=== PATIENT | female | born 1950 | race Caucasian/White ===

== ENCOUNTER → 2016-08-20 | Outpatient (CLI) | payer MEDICARE, OTHER ==
[~2016-08-20] MED LIST: ALBUTEROL0.09 MG/A4 IH; ASPIR-LOW81 MG PO; BUDEPRION SR150 M1 PO; CARDIZEM 30MG T30 MG PO; CARTIA; CARTIA XT180 MG PO; CELEBREX 200MG200 MG PO; CELEXA 20MG20 MG/TAB; CIPRO 500MG TA500 MG PO; EFFEXOR 75M75 MG/TAB PO; ESCITALOPRAM; KLONOPIN 0.5MG0.5 MG PO; LAMICTAL 100MG100 MG PO; LEVAQUIN 750MG750 M1 PO; NORCO 325 MG-51 TAB PO; PREDNISONE20 MG PO; PRILOSEC; PRILOSEC 20MG20 MG PO; TESSALON PERLE200 MG PO; TIAZAC240 MG PO; TOPROL; TRIAMCINOLONE A15 GM TP; XANAX .25M0.25 MG/TA PO; ZITHROMAX Z PA250 MG PO; ZOFRAN 4MG T4 MG/TAB PO
== END ==
LOC: BHSO 11:40
DX: F33.1 Major depressive disorder, recurrent, moderate (principal)

== ENCOUNTER → 2016-10-24 | Outpatient (CLI) | payer MEDICARE, OTHER | LOC: BHSO 10:00 | DX: F33.1 Major depressive disorder, recurrent, moderate (principal) ==

== ENCOUNTER 2016-11-17 02:17 | Emergency (ER) | payer MEDICARE, OTHER ==
[~2016-11-17] VITALS: Ht 165.1 cm; Wt 110.0 kg
[~2016-11-17 02:17] MED LIST changes: -TRIAMCINOLONE A15 GM TP
[2016-11-17 02:18] VITALS: TEMP 97.9
[2016-11-17] MEDS ORDERED: TRIAMCINOLONE A15 GM TP (02:36)
[2016-11-17 03:23] VITALS: BP 174/97; PULSE 91
== END 2016-11-17 03:23 | disposition home or self-care (01) ==
LOC: COL.ER 02:17
DX: L50.9 Urticaria, unspecified (principal); K75.9 Inflammatory liver disease, unspecified; I10 Essential (primary) hypertension; F32.9 Major depressive disorder, single episode, unspecified; Z90.710 Acquired absence of both cervix and uterus
CPT/HCPCS: J1040

== ENCOUNTER → 2016-12-05 | Outpatient (CLI) | payer MEDICARE, OTHER ==
[~2016-12-05] MED LIST changes: +TRIAMCINOLONE A15 GM TP
== END ==
LOC: BHSO 08:58
DX: F41.1 Generalized anxiety disorder (principal)

== ENCOUNTER → 2017-03-04 | Outpatient (CLI) | payer MEDICARE, OTHER | LOC: MC.RAD 10:54 | DX: Z12.31 Encounter for screening mammogram for malignant neoplasm of breast (principal) ==

== ENCOUNTER → 2017-03-11 | Outpatient (CLI) | payer MEDICARE, OTHER | LOC: BHSO 08:46 | DX: F33.1 Major depressive disorder, recurrent, moderate (principal) ==

== ENCOUNTER → 2017-06-12 | Outpatient (CLI) | payer MEDICARE, OTHER | LOC: BHSO 09:14 | DX: F33.1 Major depressive disorder, recurrent, moderate (principal) | CPT/HCPCS: G0463 ==

== ENCOUNTER → 2017-09-10 | Outpatient (CLI) | payer MEDICARE, OTHER | LOC: BHSO 09:00 | DX: F33.41 Major depressive disorder, recurrent, in partial remission (principal) | CPT/HCPCS: G0463 ==

== ENCOUNTER → 2017-11-12 | Outpatient (CLI) | payer MEDICARE, OTHER | LOC: BHSO 08:54 | DX: F41.1 Generalized anxiety disorder (principal) | CPT/HCPCS: G0463 ==

== ENCOUNTER → 2017-12-15 | Outpatient (CLI) | payer MEDICARE, OTHER | LOC: COL.RAD 09:43 | DX: M17.11 Unilateral primary osteoarthritis, right knee (principal); M22.41 Chondromalacia patellae, right knee; M25.461 Effusion, right knee; S83.241D Other tear of medial meniscus, current injury, right knee, subsequent encounter ==

== ENCOUNTER 2018-02-07 12:04 | Emergency (ER) | payer MEDICARE, OTHER ==
[2018-02-07 12:10] VITALS: TEMP 97.9
[2018-02-07 12:44] LABS: BASO # 0.1 (0.0-0.2); BASO % 0.5 % (0.0-2.0); EOS # 1.7 (0.0-0.7); EOS % 13.4 % (0-4.0); GRAN # 6.7 (1.4-6.5); GRAN % 54.2 % (42.2-75.2); HEMATOCRIT 48.6 % (37.0-47.0); HEMOGLOBIN 16.5 g/dl (12.5-16.0); LYMPH # 3.1 (1.2-3.4); MEAN CELL VOLUME 86 fl (80.0-100.0); MEAN CORPUSCULAR HEMOGLOBIN 29 pg (27.0-31.0); MEAN CORPUSCULAR HGB CONC 34 g/dl (33.0-37.0); MEAN PLATELET VOLUME 9.9 fl (7.4-10.4); MONO # 0.8 (0.1-0.6); MONO % 6.3 % (1.7-9.3); PLATELET COUNT 323 K/mm3 (130-400); RED BLOOD COUNT 5.64 M/mm3 (4.10-5.30); REDCELL DISTRIBUTION WIDTH-CV 13.1 % (11.5-14.5)
[2018-02-07 12:56] LABS: COLLECTION METHOD CLEAN CATCH
[2018-02-07 12:57] LABS: ALBUMIN 4.2 gm/dL (3.5-5.0); BILIRUBIN,TOTAL 0.5 mg/dL (0.0-1.0); C-REACTIVE PROTEIN 1.1 mg/dL (0.0-0.9); CALCIUM 9.9 mg/dL (8.4-10.2); CREATININE, serum 1.15 mg/dL (0.52-1.25); POTASSIUM 3.9 mmol/L (3.4-5.0); TOTAL PROTEIN 7.9 gm/dL (6.4-8.2)
[2018-02-07] MEDS ORDERED: PRILOSEC 20MG20 MG PO (12:58)
[2018-02-07] MEDS ORDERED: WELLBUTRIN XL150 MG PO (12:59)
[2018-02-07] MEDS ORDERED: TOPROL XL 25MG25 MG PO (12:59)
[2018-02-07] MEDS ORDERED: CARTIA XT300 MG PO (12:59)
[2018-02-07] MEDS ORDERED: EFFEXOR-XR150 MG PO (12:59)
[2018-02-07] MEDS ORDERED: LAMICTAL150 MG PO (13:00)
[2018-02-07 13:09] LABS: HYALINE CAST >12 /lpf; MUCOUS Present /lpf; PH 5 (5-8); URINE APPEARANCE Hazy; URINE BACTERIA None Seen /hpf; URINE BILIRUBIN Negative (NEGATIVE); URINE BLOOD Negative (NEGATIVE); URINE COLOR Amber; URINE GLUCOSE Negative (NEGATIVE); URINE KETONE Negative (NEGATIVE); URINE LEUKOCYTE ESTERASE Negative (NEGATIVE); URINE NITRATE Negative (NEGATIVE); URINE PROTEIN(semi-quant) 2+ (NEGATIVE); URINE RBC 0-2 /hpf
[2018-02-07 14:34] VITALS: BP 144/83; PULSE 85
[2018-02-08] MEDS ORDERED: PHENERGAN 25 TA25 MG PO (04:22)
[2018-02-08] MEDS ORDERED: CIPRO 500MG TA500 MG PO (04:22)
[2018-02-08] MEDS ORDERED: FLAGYL500 MG PO (04:22)
== END 2018-02-07 15:40 | disposition home or self-care (01) ==
LOC: COL.ER 12:04
PROVIDERS: Family Medicine
DX: R10.12 Left upper quadrant pain (principal); R19.7 Diarrhea, unspecified; I10 Essential (primary) hypertension
CPT/HCPCS: J1170; J2405; J7030; J7120; Q9967

== ENCOUNTER 2018-02-08 01:56 | Emergency (ER) | payer MEDICARE, OTHER ==
[~2018-02-08] VITALS: Ht 165.2 cm; Wt 104.5 kg
[~2018-02-08 01:56] MED LIST changes: +CARTIA XT300 MG PO; +EFFEXOR-XR150 MG PO; +LAMICTAL150 MG PO; +TOPROL XL 25MG25 MG PO; +WELLBUTRIN XL150 MG PO
[2018-02-08 02:09] VITALS: TEMP 98.1
[2018-02-08 02:57] LABS: BASO # 0.1 (0.0-0.2); BASO % 0.3 % (0.0-2.0); EOS # 2.8 (0.0-0.7); EOS % 19.3 % (0-4.0); GRAN # 7.2 (1.4-6.5); GRAN % 49.2 % (42.2-75.2); HEMATOCRIT 45.6 % (37.0-47.0); HEMOGLOBIN 15.4 g/dl (12.5-16.0); LYMPH # 3.3 (1.2-3.4); MEAN CELL VOLUME 88 fl (80.0-100.0); MEAN CORPUSCULAR HEMOGLOBIN 30 pg (27.0-31.0); MEAN CORPUSCULAR HGB CONC 34 g/dl (33.0-37.0); MEAN PLATELET VOLUME 9.9 fl (7.4-10.4); MONO % 7.1 % (1.7-9.3); PLATELET COUNT 275 K/mm3 (130-400); RED BLOOD COUNT 5.21 M/mm3 (4.10-5.30); REDCELL DISTRIBUTION WIDTH-CV 13.2 % (11.5-14.5)
[2018-02-08 03:09] LABS: ALANINE AMINOTRANSFERASE 28 U/L (9-52); ALBUMIN 3.7 gm/dL (3.5-5.0); ALKALINE PHOSPHATASE 119 U/L (50-136); ANION GAP 13 mmol/L (7-16); AST,SGOT 20 U/L (15-37); BILIRUBIN,TOTAL 0.4 mg/dL (0.0-1.0); BLOOD UREA NITROGEN 10 mg/dL (7-17); C-REACTIVE PROTEIN 1.1 mg/dL (0.0-0.9); CALCIUM 9.6 mg/dL (8.4-10.2); CARBON DIOXIDE 19 mmol/L (22-30); CHLORIDE 108 mmol/L (98-107); GLUCOSE 108 mg/dL (74-106); POTASSIUM 3.5 mmol/L (3.4-5.0); SODIUM 140 mmol/L (137-145)
[2018-02-08 03:12] LABS: LIPASE < 10 U/L (23-300)
[2018-02-08 03:25] LABS: TROPONIN-I < 0.012 ng/mL (0.000-0.034)
[2018-02-08] MEDS ORDERED: CIPRO 500MG TA500 MG PO (04:22)
[2018-02-08] MEDS ORDERED: PHENERGAN 25 TA25 MG PO (04:22)
[2018-02-08] MEDS ORDERED: FLAGYL500 MG PO (04:22)
[2018-02-08 04:55] VITALS: BP 131/73; PULSE 91
== END 2018-02-08 04:55 | disposition home or self-care (01) ==
LOC: COL.ER 01:56
PROVIDERS: Emergency Medicine
DX: R11.10 Vomiting, unspecified (principal); R19.7 Diarrhea, unspecified; R10.9 Unspecified abdominal pain; F32.9 Major depressive disorder, single episode, unspecified; I10 Essential (primary) hypertension; Z90.710 Acquired absence of both cervix and uterus
CPT/HCPCS: J2405; J7030

== ENCOUNTER → 2018-02-09 | Outpatient (CLI) | payer MEDICARE, OTHER ==
[~2018-02-09] MED LIST changes: +FLAGYL500 MG PO; +PHENERGAN 25 TA25 MG PO
== END ==
LOC: COL.RAD 10:23
DX: N20.0 Calculus of kidney (principal); R19.7 Diarrhea, unspecified

== ENCOUNTER → 2018-02-13 | Outpatient (CLI) | payer MEDICARE, OTHER | LOC: COL.RAD 10:07 | DX: R10.13 Epigastric pain (principal) | CPT/HCPCS: A9537; J2270 ==

== ENCOUNTER → 2018-02-19 | Outpatient (CLI) | payer MEDICARE, OTHER ==
[~2018-02-19] MED LIST changes: +COLACE 100100 MG/CAP PO; +MOTRIN 600600 MG/TAB PO
[2018-02-19 12:22] LABS: INR 1.3 (0.8-3.0); PROTHROMBIN TIME 15.2 SECONDS (9.7-12.8)
== END ==
LOC: COL.LAB 11:22
PROVIDERS: Surgery
DX: Z01.812 Encounter for preprocedural laboratory examination (principal)

== ENCOUNTER 2018-02-20 12:08 | Observation (INO) | payer MEDICARE, OTHER ==
[2018-02-20] VITALS (9 sets, daily range): BP systolic 116–151; BP diastolic 46–94; PULSE 86–91; TEMP 98–98.8
[~2018-02-20] VITALS: Ht 165.1 cm; Wt 103.1 kg
[~2018-02-20 12:08] MED LIST changes: -COLACE 100100 MG/CAP PO; -MOTRIN 600600 MG/TAB PO
[2018-02-20] MEDS ORDERED: LAMICTAL 100MG100 MG PO (12:59)
[2018-02-20 13:07] LABS: INR 1.4 (0.8-3.0); PROTHROMBIN TIME 15.9 SECONDS (9.7-12.8)
[2018-02-20] MEDS ORDERED: NORCO 325 MG-51 TAB PO (14:21)
[2018-02-20] MEDS ORDERED: MOTRIN 600600 MG/TAB PO (14:21)
[2018-02-20] MEDS ORDERED: COLACE 100100 MG/CAP PO (14:21)
[2018-02-21 00:17] VITALS: BP 131/58; PULSE 97; TEMP 98.6
[2018-02-21 03:02] VITALS: BP 145/75; PULSE 94; TEMP 97.8
[2018-02-21 07:42] VITALS: BP 147/82; PULSE 94; TEMP 98.3
[2018-02-21 11:39] VITALS: BP 152/69; PULSE 97; TEMP 97.9
== END 2018-02-21 15:30 | disposition home or self-care (01) ==
LOC: SDCO 12:08 → INPTSU 16:22 → SURG 16:22
PROVIDERS: Surgery
DX: K81.1 Chronic cholecystitis (principal); I12.9 Hypertensive chronic kidney disease with stage 1 through stage 4 chronic kidney disease, or unspecified chronic kidney disease; N18.2 Chronic kidney disease, stage 2 (mild); N60.12 Diffuse cystic mastopathy of left breast; N60.11 Diffuse cystic mastopathy of right breast; G47.33 Obstructive sleep apnea (adult) (pediatric); J45.909 Unspecified asthma, uncomplicated; K21.9 Gastro-esophageal reflux disease without esophagitis; Z80.0 Family history of malignant neoplasm of digestive organs; Z88.5 Allergy status to narcotic agent; Z88.1 Allergy status to other antibiotic agents; Z79.899 Other long term (current) drug therapy; F32.9 Major depressive disorder, single episode, unspecified; F41.9 Anxiety disorder, unspecified
CPT/HCPCS: G0378; G0379; J0690; J1100; J1170; J2405; J2550; J2704; J2710; J2765; J3010; J7120

== ENCOUNTER → 2018-03-10 | Outpatient (CLI) | payer MEDICARE, OTHER ==
[~2018-03-10] MED LIST changes: +ASPI325T6 PO; +COLACE 100100 MG/CAP PO; +MOTRIN 600600 MG/TAB PO; +NORCO 325 MG-7.1 TAB PO; +ROXICODONE 55 MG/TAB PO
[2018-03-10 13:35] LABS: HEMATOCRIT 43.5 % (37.0-47.0); HEMOGLOBIN 14.6 g/dl (12.5-16.0); MEAN CELL VOLUME 89 fl (80.0-100.0); MEAN CORPUSCULAR HEMOGLOBIN 30 pg (27.0-31.0); MEAN CORPUSCULAR HGB CONC 34 g/dl (33.0-37.0); MEAN PLATELET VOLUME 10.1 fl (7.4-10.4); PLATELET COUNT 342 K/mm3 (130-400); REDCELL DISTRIBUTION WIDTH-CV 13.2 % (11.5-14.5)
[2018-03-10 13:42] LABS: ALBUMIN 3.9 gm/dL (3.5-5.0); BILIRUBIN,TOTAL 0.4 mg/dL (0.0-1.0); CALCIUM 9.3 mg/dL (8.4-10.2); CREATININE, serum 1.01 mg/dL (0.52-1.25); POTASSIUM 3.6 mmol/L (3.4-5.0); TOTAL PROTEIN 7.5 gm/dL (6.4-8.2)
== END ==
LOC: COL.LAB 12:42
PROVIDERS: Surgery
DX: R53.1 Weakness (principal); R53.83 Other fatigue; R42 Dizziness and giddiness

== ENCOUNTER 2018-04-24 09:32 | Emergency (ER) | payer OTHER, MEDICARE ==
[~2018-04-24] VITALS: Ht 165.1 cm; Wt 95.5 kg
[2018-04-24 09:37] VITALS: BP 128/63; TEMP 97.8
[2018-04-24] MEDS ORDERED: ULTRAM 50MG TAB50 MG PO (10:37)
[2018-04-24 10:53] VITALS: PULSE 78
== END 2018-04-24 10:54 | disposition home or self-care (01) ==
LOC: COL.ER 09:32
DX: S80.01XA Contusion of right knee, initial encounter (principal); I10 Essential (primary) hypertension; Z47.1 Aftercare following joint replacement surgery; Z88.5 Allergy status to narcotic agent; Z90.49 Acquired absence of other specified parts of digestive tract; Z79.82 Long term (current) use of aspirin; V89.2XXA Person injured in unspecified motor-vehicle accident, traffic, initial encounter
CPT/HCPCS: J1885

== ENCOUNTER → 2018-07-02 | Outpatient (CLI) | payer MEDICARE, OTHER ==
[~2018-07-02] MED LIST changes: +ULTRAM 50MG TAB50 MG PO
== END ==
LOC: BHSO 14:37
DX: F33.1 Major depressive disorder, recurrent, moderate (principal)
CPT/HCPCS: G0463

== ENCOUNTER → 2018-07-21 | Outpatient (CLI) | payer MEDICARE, OTHER | LOC: BHSO 08:55 | DX: F33.41 Major depressive disorder, recurrent, in partial remission (principal) | CPT/HCPCS: G0463 ==

== ENCOUNTER → 2018-08-20 | Outpatient (CLI) | payer MEDICARE, OTHER | LOC: BHSO 09:02 | DX: F33.41 Major depressive disorder, recurrent, in partial remission (principal) | CPT/HCPCS: G0463 ==

== ENCOUNTER → 2018-10-05 | Outpatient (CLI) | payer MEDICARE, OTHER | LOC: BHSO 08:56 | DX: F33.42 Major depressive disorder, recurrent, in full remission (principal) | CPT/HCPCS: G0463 ==

== ENCOUNTER → 2018-11-24 | Outpatient (CLI) | payer MEDICARE, OTHER | LOC: BHSO 10:12 | DX: F33.42 Major depressive disorder, recurrent, in full remission (principal) | CPT/HCPCS: G0463 ==

== ENCOUNTER → 2019-03-29 | Outpatient (CLI) | payer MEDICARE, OTHER | LOC: BHSO 08:57 | DX: F33.42 Major depressive disorder, recurrent, in full remission (principal) | CPT/HCPCS: G0463 ==

== ENCOUNTER → 2019-05-25 | Outpatient (CLI) | payer MEDICARE, OTHER | LOC: BHSO 09:22 | DX: F33.41 Major depressive disorder, recurrent, in partial remission (principal) | CPT/HCPCS: G0463 ==

== ENCOUNTER 2019-06-14 08:29 | Day surgery (SDC) | payer MEDICARE, OTHER ==
[2019-06-14] VITALS (7 sets, daily range): BP systolic 112–155; BP diastolic 60–89; PULSE 65–78; TEMP 97.3–97.4
[~2019-06-14] VITALS: Ht 165.1 cm; Wt 100.4 kg
--- NOTE | 2019-06-14 16:34 | NUR ---
PT RETURNED FROM PACU PER CART. PT WAS AWAKE ALERT AND ORIENTATED. PT DENIES PAIN OR NAUSEA AT THIS TIME. DRESSING INTACT TO LEFT EXTREMITY. FINGERS ARE WARM TO THE TOUCH WITH GOOD CAPILLARY REFILL. PT DENIES NUMBNESS OR TINGLING. REQUESTS COKE AND BLUEBERRY MUFFIN. WILL CONT TO MONITOR. CALL LIGHT IN REACH.
--- NOTE | 2019-06-14 17:08 | NUR ---
PT ALERT AND ORIENTATED, DENIES PAIN OR NAUSEA, NO VOMITING. PT LEFT EXTREMITY DRESSING IS INTACT AND DRY. FINGERS WARM, DENIES NUMBNESS AND TINGLING. GOOD CAPILLARY REFILL. VSS, AFEBRILE. DISCHARGE INSTRUCTIONS GIVEN, PT VOICES UNDERSTANDING. PATIENT DISCHARGED TO FAMILY VEHICLE, DAUGHTER DRIVING.
== END 2019-06-14 17:22 | disposition home or self-care (01) ==
LOC: SDCO 08:29
DX: G56.02 Carpal tunnel syndrome, left upper limb (principal); I10 Essential (primary) hypertension; G47.33 Obstructive sleep apnea (adult) (pediatric); I12.9 Hypertensive chronic kidney disease with stage 1 through stage 4 chronic kidney disease, or unspecified chronic kidney disease; N18.2 Chronic kidney disease, stage 2 (mild); Z79.82 Long term (current) use of aspirin; Z79.899 Other long term (current) drug therapy; Z88.2 Allergy status to sulfonamides; F41.9 Anxiety disorder, unspecified; K21.9 Gastro-esophageal reflux disease without esophagitis
CPT/HCPCS: J0690; J1885; J2250; J2405; J2704; J3010; J7120

== ENCOUNTER 2020-06-02 09:47 | Day surgery (SDC) | payer MEDICARE ==
[~2020-06-02] VITALS: Ht 165.1 cm; Wt 105.5 kg
[2020-06-02 11:38] VITALS: BP 144/77; PULSE 72; TEMP 97.3
[2020-06-02 11:45] VITALS: BP 108/67; PULSE 62; TEMP 98.6
--- NOTE | 2020-06-02 11:45 | NUR ---
Pt to GI bay 9 via cart from ENDO. Pt awake and alert. Pt having wheezing noted, but denies shortness of breath. Pt requires O2 at 3 liters via oxymask. RT notified of breathing treatment orders. Will continue to monitor. Call light within reach.
[2020-06-02] MEDS ORDERED: LAMICTAL150 MG PO (11:54)
[2020-06-02] MEDS ORDERED: ALAVERT10 M1 PO (11:56)
[2020-06-02] MEDS ORDERED: TESSALON P100 MG/CAP PO (11:56)
[2020-06-02] MEDS ORDERED: NORCO 325 MG-51 TAB PO (11:57)
[2020-06-02 12:00] VITALS: BP 130/72; PULSE 61
--- NOTE | 2020-06-02 12:00 | NUR ---
Pt continues to rest. Breathing treatment in progress. Will continue to monitor.
[2020-06-02 12:15] VITALS: BP 119/65; PULSE 58
--- NOTE | 2020-06-02 12:15 | NUR ---
Pepsi and muffin given per pt request. O2 discontinued. Will continue to monitor.
[2020-06-02 12:30] VITALS: BP 141/75; PULSE 59
--- NOTE | 2020-06-02 12:30 | NUR ---
Pt continues to rest. Denies needs. Will continue to monitor. Call light within reach.
--- NOTE | 2020-06-02 12:45 | NUR ---
Discharge instructions reviewed. Pt voices understanding. IV site discontinued with all parts intact. Pt up to dress. Call light within reach.
--- NOTE | 2020-06-02 12:59 | NUR ---
Pt escorted to private car via wheel chair. Pt accompanied home by her daughter.
== END 2020-06-02 12:59 | disposition home or self-care (01) ==
LOC: SDCO 09:47
DX: K31.7 Polyp of stomach and duodenum (principal); K21.9 Gastro-esophageal reflux disease without esophagitis; F45.8 Other somatoform disorders; R09.89 Other specified symptoms and signs involving the circulatory and respiratory systems; Q39.8 Other congenital malformations of esophagus; K22.4 Dyskinesia of esophagus; K44.9 Diaphragmatic hernia without obstruction or gangrene; Z88.5 Allergy status to narcotic agent; Z88.1 Allergy status to other antibiotic agents; Z88.0 Allergy status to penicillin; F41.9 Anxiety disorder, unspecified; U07.1 COVID-19; K76.0 Fatty (change of) liver, not elsewhere classified; Z90.710 Acquired absence of both cervix and uterus
CPT/HCPCS: J2704; J7030

== ENCOUNTER 2020-09-24 15:32 | Emergency (ER) | payer MEDICARE ==
[~2020-09-24] VITALS: Ht 165.1 cm; Wt 104.5 kg
[~2020-09-24 15:32] MED LIST changes: +ALAVERT10 M1 PO; +TESSALON P100 MG/CAP PO
[2020-09-24 15:43] VITALS: TEMP 98.1
[2020-09-24 17:55] VITALS: BP 132/70; PULSE 78
== END 2020-09-24 17:55 | disposition home or self-care (01) ==
LOC: COL.ER 15:32
DX: S00.11XA Contusion of right eyelid and periocular area, initial encounter (principal); I10 Essential (primary) hypertension; F32.9 Major depressive disorder, single episode, unspecified; K21.9 Gastro-esophageal reflux disease without esophagitis; Z88.2 Allergy status to sulfonamides; Y00.XXXA Assault by blunt object, initial encounter

== ENCOUNTER 2020-12-26 22:17 | Emergency (ER) | payer MEDICARE ==
[~2020-12-26] VITALS: Ht 165.1 cm; Wt 100.0 kg
[2020-12-26 22:23] VITALS: TEMP 98.5
[2020-12-26 23:20] LABS: BASO % 0.6 % (0.0-2.0); EOS # 0.3 (0.0-0.7); EOS % 5.3 % (0-4.0); GRAN # 3.7 (1.4-6.5); GRAN % 59.2 % (42.2-75.2); HEMATOCRIT 38.9 % (37.0-47.0); HEMOGLOBIN 12.3 g/dl (12.5-16.0); LYMPH # 1.6 (1.2-3.4); LYMPH % 25.9 % (20.0-51.0); MEAN CELL VOLUME 87 fl (80.0-100.0); MEAN CORPUSCULAR HEMOGLOBIN 28 pg (27.0-31.0); MEAN CORPUSCULAR HGB CONC 32 g/dl (33.0-37.0); MEAN PLATELET VOLUME 9.9 fl (7.4-10.4); MONO # 0.5 (0.1-0.6); MONO % 8.5 % (1.7-9.3); PLATELET COUNT 244 K/mm3 (130-400); RED BLOOD COUNT 4.47 M/mm3 (4.10-5.30); REDCELL DISTRIBUTION WIDTH-CV 13.5 % (11.5-14.5)
[2020-12-26 23:24] LABS: ALANINE AMINOTRANSFERASE 19 U/L (4-34); ALBUMIN 3.7 gm/dL (3.5-5.0); ALKALINE PHOSPHATASE 120 U/L (50-136); ANION GAP 8 mmol/L (7-16); AST,SGOT 29 U/L (15-37); BILIRUBIN,TOTAL 0.2 mg/dL (0.0-1.0); BLOOD UREA NITROGEN 11 mg/dL (7-17); CALCIUM 8.6 mg/dL (8.4-10.2); CARBON DIOXIDE 27 mmol/L (22-30); CHLORIDE 107 mmol/L (98-107); CREATININE, serum 0.89 (0.52-1.25); GLUCOSE 142 mg/dL (74-106); POTASSIUM 3.5 mmol/L (3.4-5.0); SODIUM 142 mmol/L (137-145); TOTAL PROTEIN 7.4 gm/dL (6.4-8.2)
[2020-12-26] MEDS ORDERED: AMBIEN CR 12.12.5 MG PO (23:32)
[2020-12-26 23:52] LABS: TROPONIN-I < 0.012 ng/mL (0.000-0.035)
[2020-12-27] MEDS ORDERED: LASIX 20MG TABL20 MG PO (00:37)
[2020-12-27] MEDS ORDERED: PROAIR DIGIHAL90 MCG IH (00:38)
[2020-12-27 00:44] VITALS: BP 167/91; PULSE 87
== END 2020-12-27 00:47 | disposition home or self-care (01) ==
LOC: COL.ER 22:17
PROVIDERS: Personal Emergency Response Attendant
DX: R06.00 Dyspnea, unspecified (principal); J44.9 Chronic obstructive pulmonary disease, unspecified; I10 Essential (primary) hypertension; K21.9 Gastro-esophageal reflux disease without esophagitis; F32.9 Major depressive disorder, single episode, unspecified; Z79.899 Other long term (current) drug therapy
CPT/HCPCS: J1940; J2930

== ENCOUNTER → 2021-03-13 | Outpatient (CLI) | payer MEDICARE ==
[~2021-03-13] MED LIST changes: +AMBIEN CR 12.12.5 MG PO; +LASIX 20MG TABL20 MG PO; +PROAIR DIGIHAL90 MCG IH
== END ==
LOC: MC.RAD 11:00
DX: Z12.31 Encounter for screening mammogram for malignant neoplasm of breast (principal)

== ENCOUNTER 2022-03-30 12:32 | Emergency (ER) | payer MEDICARE, OTHER ==
[~2022-03-30] VITALS: Ht 165.1 cm; Wt 69.1 kg
[2022-03-30 12:37] VITALS: TEMP 98.8
[2022-03-30 13:08] LABS: BASO % 0.2 % (0.0-2.0); EOS # 0.2 K/mm3 (0.0-0.7); EOS % 2.3 % (0.0-4.0); GRAN # 8.2 K/mm3 (1.4-6.5); GRAN % 77.4 % (42.2-75.2); HEMATOCRIT 42.6 % (37.0-47.0); HEMOGLOBIN 13.7 g/dl (12.5-16.0); LYMPH # 1.2 K/mm3 (1.2-3.4); LYMPH % 11.2 % (20.0-51.0); MEAN CELL VOLUME 84 fl (80.0-100.0); MEAN CORPUSCULAR HEMOGLOBIN 27 pg (27-31); MEAN CORPUSCULAR HGB CONC 32 g/dl (33.0-37.0); MONO # 0.9 K/mm3 (0.1-0.6); MONO % 8.4 % (1.7-9.3); PLATELET COUNT 253 K/mm3 (130-400); RED BLOOD COUNT 5.09 M/mm3 (4.10-5.30)
[2022-03-30 13:22] LABS: ALANINE AMINOTRANSFERASE 18 U/L (0-55); ALBUMIN 3.6 gm/dL (3.4-4.8); ALKALINE PHOSPHATASE 115 U/L (40-150); ANION GAP 12 mmol/L (7-16); AST,SGOT 20 U/L (5-34); BILIRUBIN,TOTAL 0.8 mg/dL (0.2-1.2); BLOOD UREA NITROGEN 9 mg/dL (10-20); CALCIUM 9.2 mg/dL (8.4-10.2); CARBON DIOXIDE 23 mmol/L (23-31); CHLORIDE 107 mmol/L (98-107); CREATININE, serum 0.94 mg/dL (0.57-1.11); GLUCOSE 139 mg/dL (70-99); POTASSIUM 4.3 mmol/L (3.5-4.5); SODIUM 142 mmol/L (136-145); TOTAL PROTEIN 7.8 gm/dL (6.2-8.1)
[2022-03-30 13:28] LABS: TROPONIN-I < 0.010 ng/mL (0.00-0.033)
[2022-03-30 15:46] VITALS: BP 156/98; PULSE 94
== END 2022-03-30 15:51 | disposition home or self-care (01) ==
LOC: COL.ER 12:32
PROVIDERS: Personal Emergency Response Attendant
DX: R07.89 Other chest pain (principal); R79.1 Abnormal coagulation profile; Z28.310 Unvaccinated for COVID-19
CPT/HCPCS: J0360; J2270; J2405